=== PATIENT | male | born 1995 | race Caucasian/White ===

== ENCOUNTER 2016-06-13 21:44 | Emergency (ER) | payer SELFPAY ==
[~2016-06-13] VITALS: Ht 185.4 cm; Wt 91.0 kg
[~2016-06-13 21:44] MED LIST: SULF1TAB47 PO
[2016-06-13 21:45] VITALS: BP 143/79; PULSE 73; RESP 16; TEMP 98; O2SAT 98
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
== END 2016-06-13 22:53 | disposition home or self-care (01) ==
LOC: NEPE 21:44
DX: Z76.89 Persons encountering health services in other specified circumstances (principal); T76.21XA Adult sexual abuse, suspected, initial encounter
CPT/HCPCS: 99282